=== PATIENT | female | born 1990 | race Caucasian/White ===

== ENCOUNTER 2018-01-08 07:22 | Inpatient (IN) | payer BC ==
[2018-01-08] MEDS ORDERED: Lidocaine 1% 50 ML MDV INJECT PRN (08:00)
[2018-01-08] MEDS ORDERED: Methylergonovine 0.2 MG/1 ML Amp IM PRN (08:00)
[2018-01-08] MEDS ORDERED: Butorphanol 1 MG/ML SDV IVPUSH PRN (08:00)
[2018-01-08] MEDS ORDERED: Carboprost Tromethamine 250 MCG/1 ML Amp IM PRN (08:00)
[2018-01-08] MEDS ORDERED: Lactated Ringers 1,000 ML IV SCH (08:00)
[2018-01-08] MEDS ORDERED: Misoprostol 200 MCG Tab PO PRN (08:00)
[2018-01-08] MEDS ORDERED: Sodium Chloride 0.9% 10 ML Syringe FLUSH PRN (08:00)
[2018-01-08] MEDS ORDERED: Water For Irrigation,Sterile 1,000 ML Container IRR PRN (08:00)
[2018-01-08] MEDS ORDERED: Sodium Chloride 0.9% 2.5 ML Syringe FLUSH PRN (08:00)
[2018-01-08] MEDS ORDERED: Nalbuphine 10 MG/1 ML Vial IVPUSH PRN (08:00)
[2018-01-08] MEDS ORDERED: Oxytocin/0.9 % Sodium Chloride 30 UNIT/500 ML BAG IV SCH (08:00)
[2018-01-08] MEDS ORDERED: Tranexamic Acid 1,000 MG in Sodium Chloride 0.9% 100 ML IV PRN (08:00)
[2018-01-08] MEDS ORDERED: Benzocaine/Menthol 20%-0.5% Spray 78 GM Cannister TOP PRN (09:38)
[2018-01-08] MEDS ORDERED: Lanolin 100% Cream 7 GM Tube TOP PRN (09:38)
[2018-01-08] MEDS ORDERED: Witch Hazel Medicated Pads 40/Jar TOP PRN (09:38)
[2018-01-08] MEDS ORDERED: Docusate Sodium 100 MG Cap PO PRN (09:38)
[2018-01-08] MEDS ORDERED: Bisacodyl 10 MG Supp RECTAL PRN (09:38)
[2018-01-08] MEDS ORDERED: Acetaminophen 500 MG Tab PO PRN (09:38)
[2018-01-08] MEDS ORDERED: oxyCODONE 5 MG Tab PO PRN (09:38)
[2018-01-08] MEDS ORDERED: Ibuprofen 400 MG Tab PO PRN (09:38)
[2018-01-08] MEDS: Acetaminophen 500 MG Tab PO PRN ×2 (09:56→21:46)
[2018-01-08] MEDS: Ibuprofen 800 MG Tab PO PRN ×3 (09:57→23:39)
--- NOTE | 2018-01-08 15:13 | OR ---
SURGEON: OMKAR RODRIGUEZ DATE OF PROCEDURE: 01/08/2018 PROCEDURE: Spontaneous vaginal delivery Repair of 1st degree perineal laceration PREOPERATIVE DIAGNOSIS: 1. This 27-year-old, G2, P1, at 38 weeks 0 days, admitted in active labor. 2. Group B streptococcus negative. POSTOPERATIVE DIAGNOSES: 1. Status post normal spontaneous vaginal delivery. 2. First-degree perineal laceration. ESTIMATED BLOOD LOSS: 300. ANESTHESIA: local for the perineal repair. FINDING: Live male delivered at 0902am. scores were 9 and 9. Weight 3920g. Three-vessel cord noted. Perineum, first-degree laceration which was repaired. BRIEF HISTORY: She was a 27-year-old G2, P1 at 38 weeks, who came in complaining of contractions. When she came, she was 7 cm dilated. She was re-examined, and was 8 cm. AROM was done ,clear fluid was noted. Afterwards, the patient was complaining of pressure, she made change to full dilation. Throughout labor course, the patient had category 1 tracing. With the patient being fully dilated, she was encouraged to push. DESCRIPTION: With the patient being fully dilated, she was encouraged to push. The head was delivered followed by the anterior and posterior shoulder, then the body of the . The was placed on the mother's abdomen. Delayed cord clamping was observed. The cord was clamped and cut, cord gases was obtained. The placenta was then delivered via controlled cord traction. Then the perineum was inspected, a first-degree laceration was noted. Local anesthesia was given, and the laceration was sutured with 3-0 Monocryl. After repairing the laceration, the perineum was inspected, it was noted to be hemostatic. All instruments and pad counts were correct x2. The patient was left bonding with baby. FATUMA BENITEZ /[id number] [place]
[2018-01-09] MEDS: Acetaminophen 500 MG Tab PO PRN ×2 (04:22→11:21)
--- NOTE | 2018-01-09 08:13 | PCM.PNPP ---
- General Info Date of Service: 01/09/18 Functional Status: Reports: Pain Controlled, Tolerating Diet, Ambulating, Urinating - Review of Systems General: Denies: Fever, Weakness, Fatigue Pulmonary: Denies: Shortness of Breath, Pleuritic Chest Pain, Cough Cardiovascular: Denies: Chest Pain, Palpitations, Dyspnea on Exertion Gastrointestinal: Denies: Abdominal Pain Genitourinary: Denies: Dysuria - General Info Date of Service: 01/09/18 - Patient Data Vital Signs - Most Recent: Last Vital Signs Temp 36.3 C 01/09/18 00:00 Pulse 65 01/09/18 00:00 Resp 18 01/09/18 00:00 BP 110/80 01/09/18 00:00 Pulse Ox 97 01/09/18 00:00 Weight - Most Recent: 72.575 kg Lab Results - Last 24 Hours: Laboratory Results - last 24 hr 01/08/18 01/08/18 01/08/18 Range/Units 08:23 08:23 09:02 WBC 8.12 (4.0-11.0) K/uL RBC 3.89 L (4.30-5.90) M/uL Hgb 10.5 L (12.0-16.0) g/dL Hct 32.0 L (36.0-46.0) % MCV 82.3 (80.0-98.0) fL MCH 27.0 (27.0-32.0) pg MCHC 32.8 (31.0-37.0) g/dL RDW Std Deviation 43.5 (28.0-62.0) fl RDW Coeff of Fransisca 15 (11.0-15.0) % Plt Count 230 (150-400) K/uL MPV 11.90 (7.40-12.00) fL Nucleated RBC % 0.0 /100WBC Nucleated RBCs # 0 K/uL Cord ABG pH (7.18-7.38) Cord ABG Base Excess (-10--2) Cord VBG pH 7.347 (7.25-7.45) Cord VBG Base Excess -4 (-10--2) Blood Type A POSITIVE Antibody Screen NEGATIVE 01/08/18 01/09/18 Range/Units 09:02 05:15 WBC (4.0-11.0) K/uL RBC (4.30-5.90) M/uL Hgb 9.8 L (12.0-16.0) g/dL Hct 30.8 L (36.0-46.0) % MCV (80.0-98.0) fL MCH (27.0-32.0) pg MCHC (31.0-37.0) g/dL RDW Std Deviation (28.0-62.0) fl RDW Coeff of Franissca (11.0-15.0) % Plt Count (150-400) K/uL MPV (7.40-12.00) fL Nucleated RBC % /100WBC Nucleated RBCs # K/uL Cord ABG pH 7.233 (7.18-7.38) Cord ABG Base Excess -6 (-10--2) Cord VBG pH (7.25-7.45) Cord VBG Base Excess (-10--2) Blood Type Antibody Screen Med Orders - Current: Current Medications Acetaminophen (Tylenol Extra Strength) 500 mg PO Q4H PRN PRN Reason: Pain Last Admin: 01/08/18 16:34 Dose: 500 mg Acetaminophen (Tylenol Extra Strength) 1,000 mg PO Q4H PRN PRN Reason: Pain Last Admin: 01/09/18 04:22 Dose: 1,000 mg Benzocaine/Menthol (Dermoplast Pain Relief 20%-0.5% [place]) 78 gm TOP ASDIRECTED PRN PRN Reason: Perineal Comfort Measure Bisacodyl (Dulcolax) 10 mg RECTAL .ONCE PRN PRN Reason: Constipation Carboprost Tromethamine (Hemabate Ds) 250 mcg IM ASDIRECTED PRN PRN Reason: Post Hemorrhage Docusate Sodium (Colace) 100 mg PO BID PRN PRN Reason: Constipation Emollient Ointment (Lansinoh Hpa) 0 gm TOP ASDIRECTED PRN PRN Reason: Sore Nipples Last Admin: 01/08/18 21:45 Dose: 1 tube Lactated Ringer's (Ringers, Lactated) 1,000 mls @ 150 mls/hr IV ASDIRECTED DEVYN Oxytocin/Sodium Chloride (Oxytocin 30 Unit/500 Ml-Ns) 30 unit in 500 mls @ 250 mls/hr IV TITRATE DEVYN Tranexamic Acid 1,000 mg/ (Sodium Chloride) 110 mls @ 600 mls/hr IV ONETIME PRN PRN Reason: Bleeding Ibuprofen (Motrin) 400 mg PO Q4H PRN PRN Reason: Pain Ibuprofen (Motrin) 800 mg PO Q6H PRN PRN Reason: Pain Last Admin: 01/08/18 23:39 Dose: 800 mg Lidocaine HCl (Xylocaine 1%) 50 ml INJECT .ONCE PRN PRN Reason: Laceration repair Last Admin: 01/08/18 09:58 Dose: 50 ml Methylergonovine Maleate (Methergine) 0.2 mg IM ASDIRECTED PRN PRN Reason: Post Hemorrhage Misoprostol (Cytotec) 200 mcg PO .ONCE PRN PRN Reason: Post Hemorrhage Oxycodone HCl (Oxycodone) 5 mg PO Q2H PRN PRN Reason: Pain Sodium Chloride (Saline Flush) 10 ml FLUSH ASDIRECTED PRN PRN Reason: Keep Vein Open Sodium Chloride (Saline Flush) 2.5 ml FLUSH ASDIRECTED PRN PRN Reason: Keep Vein Open Sterile Water (Sterile Water For Irrigation) 1,000 ml IRR ASDIRECTED PRN PRN Reason: delivery Last Admin: 01/08/18 09:58 Dose: 1,000 ml Witch Valerie (Tucks) 1 pad TOP ASDIRECTED PRN PRN Reason: comfort care Discontinued Medications Butorphanol Tartrate (Stadol) 1 mg IVPUSH Q1H PRN PRN Reason: Pain Nalbuphine HCl (Nubain) 10 mg IVPUSH Q1H PRN PRN Reason: Pain (severe 7-10) - Interaction Disposition, : [place] in Room with Family Interaction: Holding Feeding: Attempted ; Nursed Fair/Poor Support Person: - Recovery Exam Fundal Tone: Firm Fundal Level: 1 Fingerbreadths Below Umbilicus Fundal Placement: Midline Lochia Amount: Scant Lochia Color: Rubra/Red Perineum Description: Intact, Minimal Bruising/Swelling Episiotomy/Laceration: Approximated Bladder Status: Voiding Urinary Elimination: Voided - Exam General: Alert, Oriented Lungs: Clear to Auscultation, Normal Respiratory Effort Cardiovascular: Regular Rate, Regular Rhythm GI/Abdominal Exam: Normal Bowel Sounds, Soft Skin: Warm, Dry, Intact Psy/Mental Status: Alert, Normal Affect, Normal Mood - Problem List & Annotations (1) Vaginal delivery SNOMED Code(s): 918116118 Code(s): O80 - ENCOUNTER FOR FULL-TERM UNCOMPLICATED DELIVERY Status: Acute Current Visit: Yes - Problem List Review Problem List Initiated/Reviewed/Updated: Yes - Assessment Assessment:: PPD#1 s/p . Minimal pain and lochia. Breast feeding well. Discharge home later today. - Plan Plan:: Discharge instructions reviewed. Nothing in the vagina for 6 weeks. Continue PNV while breast feeding. Can use OTC ibuprofen/tylenol as needed for pain. Instructed patient to call if she develops fever greater than 101 or bleeding through a large pad an hour. F/U with [facility] in 6 weeks
[2018-01-09] MEDS: Ibuprofen 800 MG Tab PO PRN (10:25)
[2018-01-09 18:09] VITALS: BP 118/79
== END 2018-01-09 14:30 | disposition home or self-care (01) | DRG 560 ==
LOC: MW.OBCHECK 07:22 → MW.OB 07:23 → MW.OBCHECK 08:33 → MW.OB 08:34 → OBSVTOIN 09:02 → MW.OB 14:45
PROVIDERS: ADMIT Obstetrics & Gynecology; ATTEND Obstetrics & Gynecology
PROC: 10E0XZZ Delivery of Products of Conception, External Approach (ICD-10-PCS; principal; 2018-01-08)
PROC: 0HQ9XZZ Repair Perineum Skin, External Approach (ICD-10-PCS; 2018-01-08)
PROC: 10907ZC Drainage of Amniotic Fluid, Therapeutic from Products of Conception, Via Natural or Artificial Opening (ICD-10-PCS; 2018-01-08)
DX: O70.0 First degree perineal laceration during delivery (principal); Z3A.38 38 weeks gestation of pregnancy; Z37.0 Single live birth
CPT/HCPCS: 36415; 59025; 59409; 82803; 85014; 85018; 85027; 86850; 86900; 86901; A9270-GY

== ENCOUNTER 2019-12-13 23:42 | Emergency (ER) | payer BC ==
[2019-12-14] MEDS ORDERED: Sodium Chloride 0.9% 10 ML Syringe FLUSH PRN (00:02)
[2019-12-14] MEDS ORDERED: Sodium Chloride 0.9% 2.5 ML Syringe FLUSH PRN (00:02)
[2019-12-14] MEDS ORDERED: Ketorolac 30 MG/ML SDV IVPUSH ONE (00:02)
[2019-12-14] MEDS ORDERED: Sodium Chloride 0.9% 1,000 ML IV ONE (00:02)
--- NOTE | 2019-12-14 00:06 | EDM.PDOC ---
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 Perea as a non- progressing /blighted ovum in the office last week and the patient and her decided that that they would like to see if she can spontaneously pass the without having to take medications or have instrumentation. She last saw her provider on Saturday and this decision was made and in the computer she does have some lab results of serum quantitative hCGs on November and December 07 that I have reviewed. She says she has had only light spotting the last 1 to 1-1/2 weeks mostly when she wipes and over the last 1 to 2 days she has had a medium low. Necessitating the use of a pad or 2/day but then tonight at 930 she started having more intense lower abdominal and pelvic cramping and having more bleeding. EMS brought her in because she felt lightheaded and felt like she might pass out at home but she did not completely pass out and she is had no nausea or vomiting no upper abdominal pain no flank pain no urinary complaints. EMS brought in 2 bags of paper towels and pads for me to see as they thought there might be tissue on there and I have taken a look at those and there is only some mucus and fibrinous bloody material which is in a scant amount and mostly it is just blood on the paper but no actual tissue or clots are seen. According to the and the patient they passed large amounts of clots and tissue at home. The patient is not having chest pain or shortness of breath .The patient did take 2 ibuprofen several hours ago for the cramping. Review of systems: As per history of present illness and below otherwise all systems reviewed and negative. Past medical history: As per history of present illness and as reviewed below otherwise noncontributory. Surgical history: As per history of present illness and as reviewed below otherwise noncontributory. Social history: No reported history of drug or alcohol abuse. Family history: As per history of present illness and as reviewed below otherwise noncontributory. Physical exam: General: Well-developed well-nourished female who is nontoxic and vital signs are noted by me HEENT: Atraumatic, normocephalic, pupils reactive, negative for conjunctival pallor or scleral icterus, mucous membranes moist, throat clear, neck supple, nontender, trachea midline. Lungs: Clear to auscultation, breath sounds equal bilaterally, chest nontender. Heart: S1S2, regular, negative for clicks, rubs, or JVD. Abdomen: Soft, nondistended, mild to moderate lower abdominal pain with palpation but no rebound or guarding. Negative for masses or hepatosplenomegaly. Pelvis: Stable nontender. Genitourinary: There are copious clots and blood in the vault and the cervix is very posterior and deviated to the left side and it is fingertip. The uterus is bulky and appropriate at approximately 8 to 10 weeks size and mildly tender. Rectal: Deferred. Extremities: Atraumatic, negative for cords or calf pain. Neurovascular unremarkable. Neuro: Awake, alert, oriented. Cranial nerves II through XII unremarkable. Cerebellum unremarkable. Motor and sensory unremarkable throughout. Exam nonfocal. Diagnostics: CBC serum quantitative hCG pelvic ultrasound Therapeutics: IV fluids Toradol, patient was offered some morphine and declines 0037: Case was discussed with Dr. Noble who is aware of her hemoglobin and her WBC count and is not concerned. She said that we should proceed to do the pelvic ultrasound just to document if the sac is passed but that she try to encourage this family to stay home as this is all expected in light of the passage of the blighted ovum. 0254: Case was rediscussed with Dr. Noble and she is aware of the quantitative hCG and the pelvic ultrasound. I have informed the patient and of these results as well as my conversation with Dr. Noble. At this point Dr. Noble wants her to go home as she is likely going to pass the sac this evening and she is to call the clinic first thing in the morning and schedule a follow-up appointment. She will be advised to push hydration and to use ibuprofen or Tylenol for pain management. She Has stated to nursing that her blood flow has significantly reduced as has the cramping Impression: Blighted ovum with spontaneous AB in progress stable Definitive disposition and diagnosis as appropriate pending reevaluation and review of above. 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 ED EXAM, GENERAL - Physical Exam Exam: See Below (see Dictation) Course - Vital Signs Last Recorded V/S: Last Vital Signs Temp 36.1 C 12/13/19 23:45 Pulse 66 12/14/19 01:51 Resp 16 12/14/19 01:51 BP 110/52 L 12/14/19 01:51 Pulse Ox 99 12/14/19 01:51 - Orders/Labs/Meds Orders: Active Orders 24 hr Category Date Time Status Sodium Chloride 0.9% [Saline Flush] Med 12/14/19 00:02 Active 10 ml FLUSH ASDIRECTED PRN Sodium Chloride 0.9% [Saline Flush] Med 12/14/19 00:02 Active 2.5 ml FLUSH ASDIRECTED PRN Saline Lock Insert [OM.PC] Stat Oth 12/14/19 00:02 Ordered Medication Orders Sodium Chloride (Saline Flush) 10 ml FLUSH ASDIRECTED PRN PRN Reason: Keep Vein Open Sodium Chloride (Saline Flush) 2.5 ml FLUSH ASDIRECTED PRN PRN Reason: Keep Vein Open Labs: Laboratory Tests 12/14/19 12/14/19 Range/Units 00:08 00:08 WBC 14.51 H (4.0-11.0) K/uL RBC 3.52 L (4.30-5.90) M/uL Hgb 10.3 L (12.0-16.0) g/dL Hct 30.0 L (36.0-46.0) % MCV 85.2 (80.0-98.0) fL MCH 29.3 (27.0-32.0) pg MCHC 34.3 (31.0-37.0) g/dL RDW Std Deviation 43.0 (28.0-62.0) fl RDW Coeff of Fransisca 14 (11.0-15.0) % Plt Count 240 (150-400) K/uL MPV 10.20 (7.40-12.00) fL Neut % (Auto) 76.6 (48.0-80.0) % Lymph % (Auto) 15.4 L (16.0-40.0) % [place] % (Auto) 6.1 (0.0-15.0) % Eos % (Auto) 1.7 (0.0-7.0) % Baso % (Auto) 0.2 (0.0-1.5) % Neut # (Auto) 11.1 H (1.4-5.7) K/uL Lymph # (Auto) 2.2 (0.6-2.4) K/uL [place] # (Auto) 0.9 H (0.0-0.8) K/uL Eos # (Auto) 0.3 (0.0-0.7) K/uL Baso # (Auto) 0.0 (0.0-0.1) K/uL HCG, Quant 3451.0 mIU/mL Meds: Medications Generic Name Dose Route Start Last Admin Trade Name Freq PRN Reason Stop Dose Admin Sodium Chloride 10 ml 12/14/19 00:02 Saline Flush FLUSH ASDIRECTED PRN Keep Vein Open Sodium Chloride 2.5 ml 12/14/19 00:02 Saline Flush FLUSH ASDIRECTED PRN Keep Vein Open Discontinued Medications Generic Name Dose Route Start Last Admin Trade Name Freq PRN Reason Stop Dose Admin Sodium Chloride 1,000 mls @ 999 mls/hr 12/14/19 00:02 12/14/19 00:15 Normal Saline IV 12/14/19 01:02 999 mls/hr STAT ONE Administration Ketorolac Tromethamine 30 mg 12/14/19 00:02 12/14/19 00:16 Toradol IVPUSH 12/14/19 00:03 30 mg ONETIME ONE Administration Departure - Departure Time of Disposition: 03:12 Disposition: Home, Self-Care 01 Condition: Good Clinical Impression: Blighted ovum, Spontaneous - Discharge Information Referrals: PCP,None [Primary Care Provider] - Forms: ED Department Discharge Additional Instructions: The following information is given to patients seen in the emergency department who are being discharged to home. This information is to outline your options for follow-up care. We provide all patients seen in our emergency department with a follow-up referral. The need for follow-up, as well as the timing and circumstances, are variable depending upon the specifics of your emergency department visit. If you don't have a primary care physician on staff, we will provide you with a referral. We always advise you to contact your personal physician following an emergency department visit to inform them of the circumstance of the visit and for follow-up with them and/or the need for any referrals to a consulting specialist. The emergency department will also refer you to a specialist when appropriate. This referral assures that you have the opportunity for followup care with a specialist. All of these measure are taken in an effort to provide you with optimal care, which includes your followup. Under all circumstances we always encourage you to contact your private physician who remains a resource for coordinating your care. When calling for followup care, please make the office aware that this follow-up is from your recent emergency room visit. If for any reason you are refused follow-up, please contact the [facility] emergency department at and ask to speak to the emergency department charge nurse. [address] [id number] Hydration and try to eat small multiple meals to keep up with your nutrition. Please do all position changing very slowly so as to avoid lightheadedness. Please monitor your blood flow as you will still have some bleeding until you completely passed with a blighted ovum. Please call the clinic first thing in the morning and let your provider know how you are doing and to get advice about follow-up in the clinic. Return to ER as needed and as discussed Sepsis Event Note - Evaluation Sepsis Screening Result: No Definite Risk - Focused Exam Vital Signs: Vital Signs Temp Pulse Resp BP Pulse Ox 12/14/19 01:51 66 16 110/52 L 99 12/13/19 23:45 36.1 C 67 18 118/49 L 98 Date Exam was Performed: 12/14/19 Time Exam was Performed: 03:12 - My Orders Last 24 Hours: My Active Orders 12/14/19 00:02 Sodium Chloride 0.9% [Saline Flush] 10 ml FLUSH ASDIRECTED PRN Sodium Chloride 0.9% [Saline Flush] 2.5 ml FLUSH ASDIRECTED PRN Saline Lock Insert [OM.PC] Stat - Assessment/Plan Last 24 Hours: My Active Orders 12/14/19 00:02 Sodium Chloride 0.9% [Saline Flush] 10 ml FLUSH ASDIRECTED PRN Sodium Chloride 0.9% [Saline Flush] 2.5 ml FLUSH ASDIRECTED PRN Saline Lock Insert [OM.PC] Stat
--- NOTE | 2019-12-14 02:51 | US ---
INDICATION: Blighted ovum. Heavy bleeding TECHNIQUE: Ultrasound OB pelvis transvaginal. Real-time rosenthal-scale imaging of the pelvis was performed. COMPARISON: None available FINDINGS: The uterus is retroverted. There is a sac-like structure in the lower uterine segment endometrium/endocervical canal, measuring 2.7 x 1.7 x 2.5 cm, containing irregular internal echogenic areas. No discrete pole or yolk sac are seen. There is small fluid and debris within the endometrial cavity in the uterine body, as well as small foci of Doppler flow. The right ovary measures 2.9 x 1.9 x 1.3 cm and the left ovary measures 2.4 x 1.9 x 3.1 cm, containing a 1.1 x 0.9 x 0.9 cm ovoid echogenic structure and a 1.9 x 0.8 x 1.0 cm adjacent ovoid hypoechoic structure. Small free fluid is seen. IMPRESSION: A sac-like structure in the lower uterine segment endometrium/endocervical canal, containing irregular internal echogenicities, without a discrete pole or yolk sac. Small fluid and debris in the endometrial cavity, as well as small foci of Doppler flow. Given the reported history, the findings are suggestive of a spontaneous in progress of an anembryonic gestation. Since no prior study is available, correlation with beta hCG levels and a short-term follow up study are recommended to exclude an ectopic gestation. A 1.1 cm ovoid echogenic structure in the left ovary which could represent a small dermoid. An adjacent 1.9 cm hypoechoic left ovarian structure could represent a corpus luteum. Follow-up in 6 weeks. Dictated by Roderick Romero MD @ 12/14/2019 2:49:45 AM Dictated by: Roderick Romero MD @ 12/14/2019 02:49:49 (Electronically Signed)
[2019-12-14 03:37] VITALS: BP 104/58; PULSE 73
== END 2019-12-14 03:55 | disposition home or self-care (01) ==
LOC: MW.ED 23:42
DX: O02.0 Blighted ovum and nonhydatidiform mole (principal); O03.9 Complete or unspecified spontaneous abortion without complication
CPT/HCPCS: 36415; 76857; 84702; 85025; 96361; 96374; 99284; J1885; J7030; 99283

== ENCOUNTER 2019-12-14 17:06 | Day surgery (SDC) | payer BC ==
[~2019-12-14 17:06] MED LIST: Glycopyrrolate 0.2 MG/ML SDV ONE; Ketorolac 30 MG/ML SDV ONE; Midazolam 1 MG/ML 2 ML SDV ONE; Ondansetron 4 MG/2 ML SDV ONE; Propofol 200 MG/20 ML SDV ONE; Rocuronium 100 MG/10 ML Syringe ONE; Sugammadex Sodium 200 MG/2 ML VIAL ONE; fentaNYL 100 MCG/2 ML SDV ONE
[2019-12-14] MEDS ORDERED: fentaNYL 100 MCG/2 ML SDV IVPUSH PRN (17:12)
--- NOTE | 2019-12-14 17:12 | PCM.PREANE ---
Preanesthetic Assessment - Anesthesia/Transfusion/Family Hx Anesthesia History: Prior Anesthesia Without Reaction Family History of Anesthesia Reaction: No Transfusion History: No Prior Transfusion(s) - Physical Assessment NPO Status Date: 12/14/19 NPO Status Time: 11:00 Vital Signs: Last Vital Signs Temp 36.5 C 12/14/19 17:07 Pulse 76 12/14/19 17:07 Resp 16 12/14/19 17:07 BP 115/65 12/14/19 17:07 Pulse Ox 100 12/14/19 17:07 Weight: 69.5 kg ASA Class: 1E - Allergies Allergies/Adverse Reactions: Allergies Allergy/AdvReac Type Severity Reaction Status Date / Time No Known Allergies Allergy Verified 12/13/19 23:47 - Acknowledgements Anesthesia Type Planned: General Anesthesia Pt an Appropriate Candidate for the Planned Anesthesia: Yes Alternatives and Risks of Anesthesia Discussed w Pt/Guardian: Yes Pt/Guardian Understands and Agrees with Anesthesia Plan: Yes PreAnesthesia Questionnaire - Past Health History Medical/Surgical History: Denies Medical/Surgical History HEENT History: Reports: None Cardiovascular History: Reports: None Respiratory History: Reports: None Gastrointestinal History: Reports: None Genitourinary History: Reports: None 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: Musculoskeletal History: Reports: None Neurological History: Reports: None Psychiatric History: Reports: None Endocrine/Metabolic History: Reports: None Hematologic History: Reports: None Immunologic History: Reports: None Oncologic (Cancer) History: Reports: None Dermatologic History: Reports: None - Infectious Disease History Infectious Disease History: Reports: None - Past Surgical History HEENT Surgical History: Reports: Oral Surgery - HOME MEDS Home Medications: Home Meds Vit No.130/Iron/Folic [ Vitamins] 1 tab PO DAILY 04/22/15 [ History] - CURRENT (IN HOUSE) MEDS Current Meds: Current Medications Discontinued Medications Fentanyl (Sublimaze) Confirm Administered Dose 100 mcg .ROUTE .STK-MED ONE Stop: 12/14/19 16:53 Glycopyrrolate (Robinul) Confirm Administered Dose 0.2 mg .ROUTE .STK-MED ONE Stop: 12/14/19 16:56 Ketorolac Tromethamine (Toradol) Confirm Administered Dose 30 mg .ROUTE .STK- MED ONE Stop: 12/14/19 16:56 Lidocaine HCl (Xylocaine-Mpf 1%) Confirm Administered Dose 5 ml .ROUTE .OonairMED ONE Stop: 12/14/19 16:56 Midazolam HCl (Versed 1 Mg/Ml) Confirm Administered Dose 2 mg .ROUTE .OonairMED ONE Stop: 12/14/19 16:53 Ondansetron HCl (Zofran) Confirm Administered Dose 4 mg .ROUTE .YouFetch ONE Stop: 12/14/19 16:56 Propofol (Diprivan 20 Ml) Confirm Administered Dose 200 mg .ROUTE .YouFetch ONE Stop: 12/14/19 16:52 Rocuronium [place] (Zemuron) Confirm Administered Dose 100 mg .ROUTE .OonairMED ONE Stop: 12/14/19 17:00 Sugammadex Sodium ([place]) Confirm Administered Dose 200 mg .ROUTE .OonairMED ONE Stop: 12/14/19 17:01
[2019-12-14] MEDS ORDERED: Sodium Chloride 0.9% 10 ML SDV IV PRN (17:21)
[2019-12-14] MEDS ORDERED: Sodium Chloride 0.9% 10 ML Syringe FLUSH PRN (17:21)
[2019-12-14] MEDS ORDERED: Sodium Chloride 0.9% 2.5 ML Syringe FLUSH PRN (17:21)
[2019-12-14] MEDS ORDERED: Lactated Ringers 1,000 ML IV SCH (17:30)
[2019-12-14] MEDS ORDERED: Doxycycline 100 MG in Sodium Chloride 0.9% 100 ML IV SCH (18:15)
[2019-12-14] MEDS ORDERED: Phenylephrine/Normal Saline 100 MCG/ML 10 ML Syringe ONE (18:47)
--- NOTE | 2019-12-14 19:09 | PCM.OPNOTE ---
- General Post-Op/Procedure Note Date of Surgery/Procedure: 12/14/19 Operative Procedure(s): suction curettage Findings: prior to procedure, uterus retroverted boggy 10 week size, cervix open 12 mm. postop uterus firm 6 weeks size Pre Op Diagnosis: incomplete spontaneous with hemorrhage (blighted ovum ) Post-Op Diagnosis: Same Anesthesia Technique: General LMA Primary Surgeon: Tracey Perea Anesthesia Provider: Aguila Traylor Dredge Pipe Operator: Hosea Vazquez Pathology: products of conception Fluid Replacement, Intraop: 1,200 EBL in mLs: 100 Complications: None Known Condition: Good
--- NOTE | 2019-12-14 19:46 | PCM.POSTAN ---
POST ANESTHESIA ASSESSMENT - MENTAL STATUS Mental Status: Alert - VITAL SIGNS Vital Signs: Last Vital Signs Temp 37.3 C 12/14/19 19:09 Pulse 69 12/14/19 19:34 Resp 19 12/14/19 19:34 BP 102/49 L 12/14/19 19:34 Pulse Ox 99 12/14/19 19:34 - RESPIRATORY Respiratory Status: Respiratory Rate WNL - CARDIOVASCULAR CV Status: Pulse Rate WNL - GASTROINTESTINAL GI Status: No Symptoms - POST OP HYDRATION Hydration Status: Adequate & Stable
[2019-12-14 23:58] VITALS: BP 106/56; PULSE 72
--- NOTE | 2019-12-15 00:41 | OR ---
SURGEON: Tracey Perea M.D. DATE OF PROCEDURE: 12/14/2019 PREOPERATIVE DIAGNOSIS: Incomplete spontaneous with hemorrhage, blighted ovum. POSTOPERATIVE DIAGNOSIS: Incomplete spontaneous with hemorrhage, blighted ovum. PROCEDURES: Suction, dilatation, and curettage. PRIMARY SURGEON: Tracey Perea M.D. ANESTHESIA: General LMA. ESTIMATED BLOOD LOSS: 100 mL. FLUIDS: 1200 mL of crystalloid. FINDINGS: Preoperatively, the uterus was retroverted, 10+ week size, boggy, with cervix open to 12 mm. Postoperatively, the uterus was firm, 6-week size, with the cervix contracted. COMPLICATIONS: None known. SPECIMEN: Products of conception. DISPOSITION: Stable to recovery. BRIEF HISTORY: This is a 29-year-old female. She is G3, P 2-0-0-2. She presented with bleeding during approximately 1 week ago and was diagnosed with a blighted ovum. She was provided with options including expected management, Cytotec, or suction D and C. She desires expectant management. Approximately 24 hours ago, she began to have the heavy bleeding and cramping. She presented to the emergency room after fainting at home. Her hemoglobin in the emergency room was 10.3; and she was dismissed to home. Ultrasound at that time showed products of conception in the uterus. After she was dismissed to home, she called today to the clinic for followup. Ultrasound confirmed products of conception. She stated that she had not had any large amount of bleeding since being seen in the emergency room, and I recommended proceeding with suction, dilatation, and curettage. She was consented including review of risks such as bleeding, infection, uterine perforation with injury to surrounding organs, risk of Asherman syndrome, and risk of anesthesia. Understanding all of these risks, she does desire to proceed. DESCRIPTION OF PROCEDURE: With the patient in dorsal lithotomy position, under adequate general LMA analgesia, the perineum and vagina were prepped with Betadine and draped in the usual fashion for vaginal surgery. SCDs were in place. The bladder was drained with a red De Leon catheter and an appropriate time-out was held. Bimanual examination was performed. IV doxycycline 100 mg was initiated. The cervix was grasped with an Allis clamp after the speculum was placed in the vagina, and the retroverted uterus was straightened and the cervical os accepted a 12 mm Hegar dilator without any resistance. The uterus sounded to 10 cm. A 12 mm straight suction curette was placed to the uterine fundus and removed in a repetitive motion. A large amount of tissue was obtained with the first pass, a moderate amount with second pass, and after that no further tissue was obtained. Sharp curettage was performed at the 12, 3, 6, and 9 o'clock position, and a small amount of tissue was noted. Therefore, a repeat curettage was performed with the suction cannula and sharp curettage was repeated. No further tissue was obtained. There was minimal bleeding. The speculum was removed from the vagina. The uterus was firm, 6-week size, with minimal bleeding. Final sponge, needle, and instrument counts were reported as correct. There were no known complications. The patient was transferred to recovery in good condition. KUSH BENITEZ /[id number]
== END 2019-12-14 23:45 | disposition home or self-care (01) ==
LOC: MW.SDS 17:06 → MW.MS 17:08 → MW.SDS 23:45
PROVIDERS: ATTEND Obstetrics & Gynecology
DX: O03.1 Delayed or excessive hemorrhage following incomplete spontaneous abortion (principal); O02.0 Blighted ovum and nonhydatidiform mole
CPT/HCPCS: 36415; 59812; 86850; 86900; 86901; J1885; J2001; J2250; J2370; J2405; J2704; J3010; J3490; 01965; 88305

== ENCOUNTER 2023-08-07 15:52 | Emergency (ER) | payer OTHER, BC ==
[2023-08-07 16:19] VITALS: BP 132/71; PULSE 85
== END 2023-08-07 16:29 | disposition home or self-care (01) ==
LOC: MW.ED 15:52
DX: Z04.1 Encounter for examination and observation following transport accident (principal); Z3A.38 38 weeks gestation of pregnancy
CPT/HCPCS: 99283